=== PATIENT | female | born 1975 | race Caucasian/White ===

== ENCOUNTER 2017-12-26 06:02 | Inpatient (IN) | payer BC ==
[2017-12-08 10:01] VITALS: BMI 36.9
[2017-12-26] MEDS ORDERED: GABAPENTIN 300 MG CAPSULE (FP) PO ONE (06:28)
[2017-12-26] MEDS ORDERED: oxyCODONE HCL 10 MG SUSTAINED ACTING TABLET PO ONE (06:28)
[2017-12-26] MEDS ORDERED: CELECOXIB 200 MG CAPSULE PO ONE (06:28)
[2017-12-26] MEDS ORDERED: ROPIVICAINE 0.2%/MORPH PF/KETOROLAC - 51ML DISP.SYRINGE IA ONE (06:28)
[2017-12-26] MEDS ORDERED: CEFAZOLIN 2 GM in DEXTROSE 5%-WATER - 50 ML IVPB ONE (06:28)
[2017-12-26] MEDS ORDERED: TRANEXAMIC ACID 1000 MG/10 ML VIAL IVPUSH ONE (06:28)
[2017-12-26] MEDS ORDERED: PANTOPRAZOLE 40 MG TABLET (FP) PO ONE (06:31)
[2017-12-26] MEDS ORDERED: MIDAZOLAM HCL 2 MG/2 ML SINGLE DOSE VIAL ONE ×3 (07:16→11:34)
[2017-12-26] MEDS ORDERED: PROPOFOL 20 ML ONE ×4 (07:16→11:19)
[2017-12-26] MEDS ORDERED: SUCCINYLCHOLINE CHLORIDE 200 MG/10 ML VIAL ONE (07:16)
[2017-12-26] MEDS ORDERED: ceFAZolin SODIUM 1 GM VIAL ONE ×2 (07:17→07:19)
--- NOTE | 2017-12-26 07:17 | HP ---
Admitting History and Physical - Admission Chief Complaint: right hip osteoarthritis x years History of Present Illness: 42 year old female presents regarding her right hip. Longstanding history of right hip osteoarthritis. Patient complains of pain, limited ROM, difficulty ambulating and difficulty with ADLs. Patient has failed conservative treatment options including PO medication, activity modifications, injections and exercise program. At this point, patient wishes to proceed with surgical intervention - right hip arthroplasty (MAKOplasty). History Source: Patient Limitations to Obtaining History: No Limitations - Past Medical History ...LMP: 03/11/16 ...: No - Past Surgical History Additional Past Surgical History: Right knee arthroscopy x 2 See written history & physical. - Smoking History Smoking history: Former smoker Have you smoked in the past 12 months: No Aproximately how many cigarettes per day: 0 - Alcohol/Substance Use Hx Alcohol Use: Yes (SOCIALLY) Home Medications - Allergies Allergies/Adverse Reactions: Allergies Allergy/AdvReac Type Severity Reaction Status Date / Time No Known Drug Allergies Allergy Verified 04/06/16 13:09 - Home Medications Home Medications: Ambulatory Orders Cholecalciferol (Vitamin D3) [Vitamin D3] 5,000 unit PO DAILY 12/08/17 Cyanocobalamin [Vitamin B12 -] 1,000 mcg PO DAILY 12/08/17 Liraglutide [Saxenda] 3 mg SQ DAILY 12/08/17 Turmeric [Curcumin] 1,000 tab PO DAILY 12/08/17 Review of Systems - Review of Systems Musculoskeletal: reports: Decreased ROM (right hip), Joint Pain (right hip) Physical Examination Vital Signs: Vital Signs Temperature 98.1 F 12/26/17 06:59 Pulse Rate 92 H 12/26/17 06:59 Respiratory Rate 16 12/26/17 06:59 Blood Pressure 113/72 12/26/17 06:59 O2 Sat by Pulse Oximetry (%) Constitutional: Yes: Well Nourished, No Distress Eyes: Yes: Conjunctiva Clear HENT: Yes: Atraumatic, Normocephalic Neck: Yes: Supple Cardiovascular: Yes: Regular Rate and Rhythm Respiratory: Yes: Regular Gastrointestinal: Yes: Soft ...Rectal Exam: Yes: Deferred Musculoskeletal: Yes: Joint Stiffness (right hip), Joint Swelling (right hip) Assessment/Plan 42 year old female presents regarding her right hip. Longstanding history of right hip osteoarthritis. Patient complains of pain, limited ROM, difficulty ambulating and difficulty with ADLs. Patient has failed conservative treatment options including PO medication, activity modifications, injections and exercise program. At this point, patient wishes to proceed with surgical intervention - right hip arthroplasty (MAKOplasty). Pros, cons, risks, benefits and alternatives of a right total hip arthroplasty (MAKOplasty), was discussed with the patient at length. Patient confirms her understanding and consents to proceed with a right total hip arthroplasty (MAKOplasty).
[2017-12-26] MEDS ORDERED: SODIUM CHLORIDE 0.9% P/F 10 ML VIAL IJ ONE (07:18)
[2017-12-26] MEDS ORDERED: VANCOMYCIN 1,000 MG VIAL (RESTRICTED TO ID ONLY) ONE (07:18)
[2017-12-26] MEDS ORDERED: BUPIVACAINE HCL/PF (5 MG/ML) 30 ML VIAL IJ ONE (07:37)
[2017-12-26] MEDS ORDERED: DEXAMETHASONE SOD PHOSPHATE/PF 10 MG/ML SDV ONE (07:37)
[2017-12-26] MEDS ORDERED: TRANEXAMIC ACID 1000 MG/10 ML VIAL ONE (08:36)
[2017-12-26] MEDS ORDERED: KETOROLAC TROMETHAMINE 30 MG/1 ML VIAL ONE (12:05)
[2017-12-26] MEDS ORDERED: traMADol HCL 50 MG TABLET ONE (12:06)
[2017-12-26] MEDS ORDERED: ACETAMINOPHEN INJECTION 100 ML IVPB ONE (12:06)
--- NOTE | 2017-12-26 12:19 | OP ---
Operative Note - Note: Operative Date: 12/26/17 Pre-Operative Diagnosis: R hip OA Operation: Right TREY Post-Operative Diagnosis: Same as Pre-op Surgeon: Curt Kirk Booster Pump Oiler: Kassi Lucio Anesthesia: Spinal Estimated Blood Loss (mls): 200
[2017-12-26] MEDS ORDERED: MAG HYDROX/AL HYDROX/SIMETH 30 ML UNIT-DOSE CUP PO PRN (12:22)
[2017-12-26] MEDS ORDERED: MAGNESIUM HYDROX 2400MG/30ML ORAL SUSPENSION 30 ML CUP PO PRN (12:22)
[2017-12-26] MEDS ORDERED: ONDANSETRON 4 MG/2 ML VIAL IVPUSH PRN (12:22)
[2017-12-26] MEDS ORDERED: LACTATED RINGERS SOLUTION 1,000 ML IV SCH (12:30)
[2017-12-26] MEDS: KETOROLAC TROMETHAMINE 30 MG/1 ML VIAL IVPUSH SCH ×2 (12:50→17:58)
[2017-12-26] MEDS: ACETAMINOPHEN 1000 MG/100 ML VIAL (NON FORMULARY) IVPB ONE (13:00)
[2017-12-26] MEDS ORDERED: oxyCODONE HCL 5 MG TABLET PO PRN (15:16)
[2017-12-26] MEDS: traMADol HCL 50 MG TABLET PO SCH ×2 (16:20→21:36)
[2017-12-26] MEDS ORDERED: DEXAMETHASONE SOD PHOSPHATE 10 MG/1 ML VIAL IVPB ONE (20:00)
[2017-12-26] MEDS: ACETAMINOPHEN 325 MG TABLET (FP) PO SCH (20:09)
[2017-12-26] MEDS: ASCORBIC ACID 500 MG TABLET (FP) PO SCH (21:35)
[2017-12-26] MEDS: CELECOXIB 200 MG CAPSULE PO SCH (21:35)
[2017-12-26] MEDS: oxyCODONE HCL 10 MG SUSTAINED ACTING TABLET PO SCH (21:36)
[2017-12-26] MEDS: GABAPENTIN 300 MG CAPSULE (FP) PO SCH ×2 (21:36→21:37)
[2017-12-26] MEDS: SENNOSIDES/DOCUSATE COMBO (SENNA PLUS) TABLET (UD) PO SCH (21:37)
[2017-12-27] MEDS: KETOROLAC TROMETHAMINE 30 MG/1 ML VIAL IVPUSH SCH ×3 (00:22→14:20)
[2017-12-27] MEDS: CEFAZOLIN 2 GM/D5W 2 GM/50 ML ML IVPB SCH ×2 (01:37→14:20)
[2017-12-27] MEDS: ACETAMINOPHEN 325 MG TABLET (FP) PO SCH ×4 (01:37→22:10)
[2017-12-27] MEDS: oxyCODONE HCL 5 MG TABLET PO PRN ×2 (01:38→08:51)
[2017-12-27] MEDS: traMADol HCL 50 MG TABLET PO SCH ×4 (03:24→22:12)
[2017-12-27 07:56] LABS: HEMATOCRIT 35.6 % (32.4-45.2); HEMOGLOBIN 12.4 GM/dl (10.7-15.3); MCH 33.3 pg (25.7-33.7); MCHC 34.9 g/dl (32.0-36.0); MEAN CELL VOLUME 95.5 fl (80-96); MEAN PLT VOLUME 9.3 fl (7.5-11.1); PLATELET COUNT 258 K/MM3 (134-434); RBC 3.73 M/mm3 (3.60-5.2); RDW 12.4 % (11.6-15.6); WHITE BLOOD COUNT 17.4 K/mm3 (4.0-10.8)
[2017-12-27 08:16] LABS: ANION GAP 4 (8-16); BLOOD UREA NITROGEN 16 mg/dl (7-18); CALCIUM 8.6 mg/dl (8.4-10.2); CHLORIDE 104 mmol/L (98-107); CO2 24 mmol/L (22-28); CREATININE 0.8 mg/dl (0.6-1.3); GLUCOSE,RANDOM 141 mg/dl (74-106); POTASSIUM 4.5 mmol/L (3.5-5.1); SODIUM 132 mmol/L (136-145)
[2017-12-27] MEDS: ASPIRIN 325 MG TABLET PO SCH (08:52)
[2017-12-27] MEDS ORDERED: LIRAGLUTIDE 3 MG SQ SCH (10:00)
--- NOTE | 2017-12-27 10:32 | PN ---
Progress Note, Physician Chief Complaint: s/p right total hip arthroplasty under spinal anesthesia History of Present Illness: paravertebral block for post op pain control - Current Medication List Current Medications: Active Medications Acetaminophen (Tylenol -) 650 mg PO Q6H [facility] Stop: 12/29/17 19:59 Last Admin: 12/27/17 08:52 Dose: 650 mg Al Hydroxide/Mg Hydroxide (Mylanta Oral Suspension -) 30 ml PO Q4H PRN PRN Reason: DYSPEPSIA Ascorbic Acid (Vitamin C -) 500 mg PO BID [facility] Last Admin: 12/26/17 21:35 Dose: 500 mg Aspirin (Asa -) 325 mg PO DAILY@0800 [facility] Last Admin: 12/27/17 08:52 Dose: 325 mg Celecoxib (Celebrex -) 200 mg PO BID [facility] Last Admin: 12/26/17 21:35 Dose: 200 mg Fentanyl (Sublimaze Injection -) 50 mcg IVPUSH [id number] PRN PRN Reason: PAIN-PACU ORDER X 4 DOSES ONLY Gabapentin (Neurontin -) 300 mg PO BID [facility] Stop: 12/29/17 21:59 Last Admin: 12/26/17 21:36 Dose: 300 mg Gabapentin (Neurontin -) 300 mg PO BID [facility] Last Admin: 12/26/17 21:37 Dose: Not Given Magnesium Hydroxide (Milk Of Magnesia -) 30 ml PO PRN PRN PRN Reason: CONSTIPATION Multivitamins/Minerals/Vitamin C (Tab-A-Vit -) 1 tab PO DAILY [facility] Non-Formulary Medication (Liraglutide [Saxenda]) 3 mg SQ DAILY [facility] Ondansetron HCl (Zofran Injection) 4 mg IVPUSH Q6H PRN PRN Reason: NAUSEA Oxycodone HCl (Roxicodone -) 5 mg PO Q3H PRN PRN Reason: PAIN LEVEL 1-5 Oxycodone HCl (Roxicodone -) 10 mg PO Q3H PRN PRN Reason: PAIN LEVEL 6-10 Last Admin: 12/27/17 08:51 Dose: 10 mg Oxycodone HCl (Oxycontin -) 10 mg PO BID [facility] Stop: 12/29/17 15:16 Last Admin: 12/26/17 21:36 Dose: 10 mg Pantoprazole Sodium (Protonix -) 40 mg PO DAILY [facility] Senna/Docusate Sodium (Pericolace -) 2 tablet PO BID [facility] Last Admin: 12/26/17 21:37 Dose: 2 tablet Tramadol HCl (Ultram -) 50 mg PO Q6H [facility] Last Admin: 12/27/17 03:24 Dose: 50 mg - Objective Vital Signs: Vital Signs Temperature 98.8 F 12/27/17 10:00 Pulse Rate 86 12/27/17 10:00 Respiratory Rate 18 12/27/17 10:00 Blood Pressure 116/65 12/27/17 10:00 O2 Sat by Pulse Oximetry (%) 98 12/27/17 10:00 Constitutional: Yes: Well Nourished Cardiovascular: Yes: WNL Respiratory: Yes: WNL Gastrointestinal: Yes: WNL Labs: CBC, BMP 12/27/17 07:15 12/27/17 07:15 Assessment/Plan No adverse effects from anesthetic, no further intervention from dept of anesthesia at this time.
[2017-12-27] MEDS: SENNOSIDES/DOCUSATE COMBO (SENNA PLUS) TABLET (UD) PO SCH ×2 (10:55→22:11)
[2017-12-27] MEDS: CELECOXIB 200 MG CAPSULE PO SCH ×2 (10:55→22:12)
[2017-12-27] MEDS: ASCORBIC ACID 500 MG TABLET (FP) PO SCH ×2 (10:55→22:11)
[2017-12-27] MEDS: PANTOPRAZOLE 40 MG TABLET (FP) PO SCH (10:55)
[2017-12-27] MEDS: MULTIVITAMINS (DAILY MVI) TABLET (FP) PO SCH (10:55)
[2017-12-27] MEDS: GABAPENTIN 300 MG CAPSULE (FP) PO SCH ×4 (10:55→22:12)
[2017-12-27] MEDS: oxyCODONE HCL 10 MG SUSTAINED ACTING TABLET PO SCH ×2 (10:59→22:11)
[2017-12-27] MEDS: ACETAMINOPHEN 1000 MG/100 ML VIAL (NON FORMULARY) IVPB ONE (14:18)
--- NOTE | 2017-12-27 22:26 | PN ---
Progress Note (short form) - Note Progress Note: Pt seen and examined. Doing well. Developed blisters posterior thigh from ice pack. AVSS Selected Entries 12/27/17 14:00 Temperature 98.0 F Pulse Rate 87 Respiratory 18 Rate Blood Pressure 127/70 O2 Sat by Pulse 100 Oximetry (%) Oxygen Delivery Room Air Method Laboratory Tests 12/27/17 12/27/17 07:15 07:15 WBC 17.4 H Hgb 12.4 Hct 35.6 Plt Count 258 Sodium 132 L Potassium 4.5 Chloride 104 Carbon Dioxide 24 Anion Gap 4 L BUN 16 Creatinine 0.8 Creat Clearance w eGFR > 60 Random Glucose 141 H Calcium 8.6 Gen: NAD RLE: c/d/i, NVID. Redness posterior thigh with 3 fluid filled blisters. A/P s/p R TREY Blisters drained and dry dressing with bacitracin ointment placed. D/C home in AM after PT
--- NOTE | 2017-12-27 22:30 | DS ---
Physical Examination Vital Signs: Vital Signs Temperature 98.0 F 12/27/17 14:00 Pulse Rate 87 12/27/17 14:00 Respiratory Rate 18 12/27/17 14:00 Blood Pressure 127/70 12/27/17 14:00 O2 Sat by Pulse Oximetry (%) 100 12/27/17 20:29 Labs: CBC, BMP 12/27/17 07:15 12/27/17 07:15 Discharge Summary Reason For Visit: OSTEOARTHRITIS RIGHT HIP Current Active Problems Osteoarthritis of right hip (Acute) Procedures: Principal: Right total hip replacement Hospital Course: Admitted for elective surgery. Procedure performed without complications. Pt received postoperative antibiotic prophylaxis and DVT ppx. Ambulated with physical therapy. Stable for discharge home with outpatient followup. Condition: Stable - Instructions Diet, Activity, Other Instructions: Dr Kirk - Hip Replacement Instructions Keep the Aquacel dressing on until removed by Dr. Kirk in 10-14 days - it is antibacterial and waterproof and you can shower with it on. Call the office for a follow-up appointment with Dr. Kirk in 10-14 days. ~ Take one Aspirin 325mg daily for 6 weeks to prevent blood clots in your legs. Take one Pantoprazole 40mg daily for 6 weeks to protect against heartburn and ulcers. Take Cephalexin (antibiotic) 3x/day for 10 days to help prevent skin infection. Take Celebrex 200mg twice daily for 30 days to reduce swelling and inflammation. Take a multivitamin, stool softener and extra Vitamin C supplement daily. For pain: *Mild pain (1-3/10): Take 1 Tramadol tablet every 4 hours as needed. Moderate pain (4-6/10): Take 1 Tramadol tablet and 1 Percocet tablet every 4 hours as needed. Severe pain (7-10/10): Take 1 Tramadol tablet and 2 Percocet tablets every 4 hours as needed. Activity: You can put as much weight on the operative leg as you want. For the first 6 weeks, all you need to do is walk around the house, go up/down stairs, and sit down/get up. After 6 weeks when everything is healed (and bone has grown into the implant) you will be sent for more intensive outpatient physical therapy. Always use a walker or cane for balance and to prevent falls. Expect to see swelling / bruising from the operative site all the way down to your toes. Wear the Compression stocking on the operative side during the day to minimize how much swelling there is in your foot/ankle. Don't wear the stocking at night. You don't have to wear the stocking on the other side. Disposition: VNS/HOME HEALTH CARE - Home Medications Comprehensive Discharge Medication List: Ambulatory Orders Cholecalciferol (Vitamin D3) [Vitamin D3] 5,000 unit PO DAILY 12/08/17 Cyanocobalamin [Vitamin B12 -] 1,000 mcg PO DAILY 12/08/17 Liraglutide [Saxenda] 3 mg SQ DAILY 12/08/17 Turmeric [Curcumin] 1,000 tab PO DAILY 12/08/17 Ascorbic Acid [Vitamin C -] 500 mg PO BID tablet 12/27/17 Aspirin [ASA -] 325 mg PO DAILY@0800 tablet 12/27/17 Celecoxib [CeleBREX -] 200 mg PO BID #60 capsule 12/27/17 Cephalexin Monohydrate [Keflex -] 500 mg PO TID #30 capsule 12/27/17 Multivitamins [Multivit ([facility] Formulary)] 1 tab PO DAILY tab 12/27/17 Oxycodone HCl/Acetaminophen [Percocet 5-325 mg Tablet] 1 - 2 tab PO Q4H PRN #60 tablet MDD 10 12/27/17 Pantoprazole Sodium [Protonix -] 40 mg PO DAILY #40 tablet.ec 12/27/17 Sennosides/Docusate Sodium [Pericolace -] 2 tablet PO BID tablet 12/27/17 traMADol HCL [Ultram -] 50 mg PO Q4H PRN #42 tablet MDD 6 12/27/17
[2017-12-28] MEDS: ACETAMINOPHEN 325 MG TABLET (FP) PO SCH ×2 (02:00→08:41)
[2017-12-28] MEDS: traMADol HCL 50 MG TABLET PO SCH ×2 (04:16→09:17)
[2017-12-28 06:27] VITALS: BP 127/65; PULSE 90; TEMP 98.2
[2017-12-28 08:22] LABS: HEMATOCRIT 33.1 % (32.4-45.2); HEMOGLOBIN 11.1 GM/dl (10.7-15.3); MCH 32.1 pg (25.7-33.7); MCHC 33.5 g/dl (32.0-36.0); MEAN CELL VOLUME 95.8 fl (80-96); MEAN PLT VOLUME 8.7 fl (7.5-11.1); PLATELET COUNT 227 K/MM3 (134-434); RBC 3.45 M/mm3 (3.60-5.2); RDW 12.8 % (11.6-15.6); WHITE BLOOD COUNT 13.6 K/mm3 (4.0-10.8)
[2017-12-28] MEDS: ASPIRIN 325 MG TABLET PO SCH (08:40)
[2017-12-28] MEDS: GABAPENTIN 300 MG CAPSULE (FP) PO SCH (09:17)
[2017-12-28] MEDS: PANTOPRAZOLE 40 MG TABLET (FP) PO SCH (09:17)
[2017-12-28] MEDS: MULTIVITAMINS (DAILY MVI) TABLET (FP) PO SCH (09:17)
[2017-12-28] MEDS: ASCORBIC ACID 500 MG TABLET (FP) PO SCH (09:17)
[2017-12-28] MEDS: CELECOXIB 200 MG CAPSULE PO SCH (09:17)
[2017-12-28] MEDS: SENNOSIDES/DOCUSATE COMBO (SENNA PLUS) TABLET (UD) PO SCH (09:17)
[2017-12-28] MEDS: oxyCODONE HCL 10 MG SUSTAINED ACTING TABLET PO SCH (09:18)
--- NOTE | 2017-12-28 13:51 | PATH ---
Surgical Pathology Report Patient Name: ABIGAIL SAUER Med. Rec. #: [id number] /Age/Gender: 1975 (Age: 42) / F Account: [id number] Location: [facility] MED-SURG Taken: 12/26/2017 Received: 12/26/2017 Reported: 12/28/2017 Physicians: Curt Kirk M.D. Specimen(s) Received RIGHT FEMORAL HEAD Clinical History Right hip osteoarthritis Final Diagnosis BONE, FEMORAL HEAD, RIGHT, TOTAL HIP REPLACEMENT MAKOPLASTY: DEGENERATIVE JOINT DISEASE. Electronically Signed Abigail Swain M.D. Gross Description Received in formalin labeled "right femoral head," is a 6.0 x 4.0 x 4.0 cm femoral head. There are areas of eburnation present. The remaining articular surfaces are jones-yellow and granular. The underlying trabecular bone is yellow and hard. Photoengraver Apprentice sections are submitted in one cassette, following decalcification. ABDI/12/26/2017 pankaj/12/26/2017
--- NOTE | 2017-12-29 08:48 | SPEC ---
DATE OF OPERATION: 12/26/2017 PREOPERATIVE DIAGNOSIS: Right hip osteoarthritis. POSTOPERATIVE DIAGNOSIS: Right hip osteoarthritis. PROCEDURE: Right total hip replacement with MAKOplasty robotic navigation. ATTENDING: Ariel Aguirre MD FISH HATCHERY MANAGER: CHINYERE Meeks ANESTHESIA: Spinal plus sedation. ESTIMATED BLOOD LOSS: 200 mL COMPLICATIONS: None. DISPOSITION: The patient was transferred to the PACU in stable condition. IMPLANTS USED: Berwick Accolade size 3 femoral component, Berwick PSL 50-mm acetabular component with acetabular screws, MDM bipolar head ball with inner ceramic 28-mm plus 4-mm offset head ball. INDICATIONS: This is a 42-year-old female who presented with severe right hip pain. She was seen and examined by Dr. Aguirre and diagnosed with severe right hip osteoarthritis. The patient was initially treated conservatively but continued to have severe pain and ambulatory dysfunction. She was, therefore, indicated for a right total hip replacement. The risks, benefits, and alternatives to the surgery were explained to the patient in great detail, and she elected to proceed with the procedure. On the day of surgery, the patient was taken to the operating room and placed on the OR table. Spinal anesthesia was administered by the anesthesiologist. The patient was then positioned in the lateral decubitus position on the table and all bony prominences were padded. An axillary roll was placed. The operative hip was then prepped and draped in the usual sterile fashion and intravenous antibiotics were given for infection prophylaxis. A surgical time-out was then performed with the team, and the patients identity, procedure, side, availability of implants, and the administration of antibiotics were confirmed. An approximately 15-cm longitudinal incision was made through the skin centered on the greater trochanter of the hip. This dissection was carried down through the subcutaneous tissues to the deep fascia. This fascia was then incised and a Cobra was placed around the inferior femoral neck. Electrocautery was used to reflect the anterior 40% of the gluteus medius and minimus starting at the musculotendinous junction and leaving a cuff for closure. This was reflected to reveal the capsule of the hip joint. An anterior capsulectomy was performed and the femoral head and neck were visualized. Grade 4 changes were noted diffusely throughout the joint. At this point, three small stab incisions were made superior to the main incision along the iliac crest. Three self-drilling Steinmann pins were then placed and the Florentino pelvic array was attached. Reference points on the limb were then entered into the robotic device and the limb length deficiency, offset, and femoral neck resection level were then calculated by the software. The hip was then dislocated with traction and external rotation. An oscillating saw was used to make the femoral neck cut at the level previously templated, and the femoral head was removed. Attention was then turned to the acetabulum. Retractors were then placed around the acetabulum and the labrum was removed. An acetabular checkpoint pin and the Loomia software were used to register the contours of the acetabulum. The acetabulum was then reamed in a single stage to the preoperatively templated size using the Loomia robotic arm. The appropriately sized cup was then impacted and had solid fixation as well as the preset inclination and version of 40 and 20 degrees, respectively. A polyethylene liner was then placed in the cup. Attention was then turned back to the femur, which was externally rotated for improved visualization. A femoral neck elevator was used to present the femoral neck cut, a box osteotome was used to enter the femoral canal, and a canal finder was used to go down the femoral shaft. The Florentino broaches were used sequentially until the optimal scratch fit was achieved. This correlated with the preoperatively templated size. From here, several different offset head and neck configurations were tested until excellent stability and length were obtained. These measurements were quantified using the Loomia software. All trial components were then removed, the femur was copiously irrigated, and the final components were placed. Leg length and stability were checked again and found to be excellent. Irrigation was performed again. Wound closure was started by repairing the abductor muscles with a no. 2 FiberWire stitch in a Krackow configuration passed through bone tunnels in the greater trochanter and tied over a bony bridge. This repair was then reinforced with a 0 V-Loc 180 barbed suture. Next, no. 1 Polysorb and 0 V-Loc 180 were used to close the fascia. The deep subcutaneous tissue was closed with no. 1 Polysorb sutures, and 2-0 Polysorb was used for the superficial subcutaneous tissue. The skin was closed using both 3-0 V-Loc 90 suture in a running subcuticular fashion and SwiftSet skin adhesive. The Florentino array and pins were removed from the iliac crest and the stab incision sites were irrigated and closed with 4-0 Polysorb sutures and SwiftSet skin adhesive. Once this was completed, a sterile dressing was applied. The patient was then awakened and taken to the PACU in stable condition. ADDENDUM: After final implants were placed, a 3-minute dilute Betadine lavage was performed. Following this, the wound was thoroughly irrigated with normal saline via pulsatile lavage, and wound closure was begun. ARIEL AGUIRRE M.D. [id number]
== END 2017-12-28 11:37 | disposition home health service (06) | DRG 470 ==
LOC: FM/S 06:02
PROVIDERS: ADMIT Student in an Organized Health Care Education/Training Program; ATTEND Student in an Organized Health Care Education/Training Program
PROC: 8E0W0CZ Robotic Assisted Procedure of Trunk Region, Open Approach (ICD-10-PCS; 2017-12-26)
PROC: 0SR90JZ Replacement of Right Hip Joint with Synthetic Substitute, Open Approach (ICD-10-PCS; principal; 2017-12-26 09:07)
DX: M16.11 Unilateral primary osteoarthritis, right hip (principal)
CPT/HCPCS: 36415; 73502-TC-RT; 80048; 84703; 85027; 86803; 87389; 88304-TC; 88311-TC; 94760; 97116-GP; 97162-GP; J0131; J1100